=== PATIENT | female | born 1990 | race African-American/Black ===

== ENCOUNTER 2025-04-03 23:28 | Emergency (ER) | payer OTHER, SELFPAY ==
--- NOTE | ~2025-04-03 | XR_ITS ---
CLINICAL HISTORY: SOB 1 view chest x-ray Comparison: None provided Findings: The lungs are clear. Heart size is normal. No acute fracture. IMPRESSION: 1. No acute findings. This document has been electronically signed by: Suhail Nash MD on 04/04/2025 00:25:42
[2025-04-03 23:31] VITALS: BP 162/87; PULSE 123; RESP 24; TEMP 36.7; O2SAT 97; BMI 35.6
--- NOTE | 2025-04-03 23:37 | ECG_ITS ---
Test Reason : DYSPNEA Blood Pressure : */* mmHG Vent. Rate : 85 BPM Atrial Rate : 85 BPM P-R Int : 156 ms QRS Dur : 100 ms QT Int : 362 ms P-R-T Axes : -8 -29 -6 degrees QTcB Int : 430 ms Normal sinus rhythm Low voltage QRS Cannot rule out Inferior infarct , age undetermined Abnormal ECG No previous ECGs available Referred By: Generic ED Physician Electronically Signed By: ROSIE GUERRERO
[2025-04-04 00:24] VITALS: BP 137/88; PULSE 83; RESP 20; TEMP 37.1; O2SAT 95
--- NOTE | 2025-04-04 00:38 | ED.GENADULT ---
[facility] - General Adult General Chief complaint: Dyspnea Stated complaint: allergic reaction/feel likes something in throat Time Seen by Provider: 04/04/25 00:26 Source: patient Mode of arrival: ambulatory Limitations: no limitations History of Present Illness ED Provider: Dr. Up [facility] narrative: 34-year-old female presented hospital today for shortness of breath. Patient stated that she was exposed to dust. This has been going on for a couple of days she has has progressively increased shortness of breath and wheezing. Related Data Previous Rx's ?Medication ?Instructions ?Recorded albuterol sulfate 90 mcg/actuation 2 puff inhalation Q6H PRN 04/04/25 aerosol inhaler (Ventolin HFA) shortness of breath or wheezing #6.7 grams prednisone 50 mg tablet 50 mg PO DAILY 7 days #7 tabs 04/04/25 Allergies Allergy/AdvReac Type Severity Reaction Status Date / Time No Known Allergies Allergy Verified 04/03/25 23:36 Review of Systems Review of Systems: Pertinent review of systems as mentioned in HPI. All other system otherwise negative. [facility] Past Medical History [facility] Narrative: None Social History Social History Alcohol intake: never Smoked in Last 30 Days: No Use of substances other than those prescribed or required for medical reasons: No Advance Directives: No Advance Directives Information Provided: Yes Do you have a plan to hurt others: No Plan Patient : No Physical Exam ED Exam Exam: General: Pleasant, no distress, interacting appropriately Head: Normacephalic, atraumatic ENT: oral mucosa moist, neck supple, no tracheal deviation Cardiovascular: regular rate, regular rhythm, no murmurs, rubbing, gallops Respiratory: Bilateral wheezing on exam Skin: Warm and dry Psychiatric: Appropriate mood and thoughts Vital Signs: Vital Signs - 24 hr 04/03/25 23:31 04/04/25 00:24 04/04/25 01:02 EDT Temperature 98.0 F 98.7 F Pulse Rate 123 H 83 84 Respiratory Rate 24 H 20 16 Blood Pressure 162/87 H 137/88 Pulse Oximetry 97 95 Oxygen Delivery Method Room Air Room Air 04/04/25 01:38 EST Temperature 97.8 F Pulse Rate 91 Respiratory Rate 16 Blood Pressure 140/65 H Pulse Oximetry 96 Oxygen Delivery Method Room Air BMI result Body Mass Index 35.6 Medications Administered Discontinued Medications Generic Name Dose Route Start Last Admin Trade Name Freq PRN Reason Stop Dose Admin Albuterol Sulfate 5 mg/ 0 mg 04/04/25 00:53 04/04/25 01:01 EDT Albuterol/Ipratropium 3 ml INHALE 04/04/25 00:54 7.5 each ONCE ONE Administration Prednisone 50 mg 04/04/25 00:43 04/04/25 01:10 EDT Prednisone 10 Mg Tablet PO 04/04/25 00:44 50 mg ONCE ONE Administration Medical Decision Making Medical Decision Making [facility] Narrative: 34-year-old female presented hospital today for evaluation of shortness of breath and wheezing. I suspect patient likely has asthma exacerbation. Basic lab work obtained. Chest x-ray was obtained. Results has been largely negative. Patient is likely has an allergic reaction to possible dust other trigger exposure which has set off her asthma. Breathing treatment was given to the patient a dose of p.o. prednisone was given to the patient as well. Patient felt much improved afterward. We will plan to discharge patient with the albuterol inhaler. We will plan to start patient on a course of prednisone as well. Patient agrees and understands this plan all questions were addressed. Differential Diagnosis Differential Diagnoses: The differential diagnosis associated with the presentation includes Pneumonia, asthma, URI, allergic reaction Lab Data [facility] Lab Attestation statement: I reviewed the patient's lab results. 04/03/25 00:34 04/03/25 00:34 Labs: Lab Results 04/03/25 04/04/25 Range/Units 00:34 00:32 WBC 9.8 (4.8-10.8) X10*3/uL RBC 4.83 (4.20-5.50) X10*6/uL Hgb 13.6 (12.0-16.0) g/dl Hct 41.7 (37.0-47.0) % MCV 86.3 (80.0-98.0) fL MCH 28.2 (27.0-33.0) pg MCHC 32.6 (31.0-35.0) g/dl RDW 11.8 (11.0-16.0) % Plt Count 283 (160-400) X10*3/uL MPV 10.9 (9.4-12.3) fL Immature Gran % (Auto) 0.3 (0.0-0.4) % Neut % (Auto) 59.1 (45-73) % Lymph % (Auto) 29.1 (20-40) % [place] % (Auto) 6.9 (2-11) % Eos % (Auto) 4.3 H (0-4) % Baso % (Auto) 0.3 (0-2) % Lymph # (Auto) 2.9 (1.2-4.9) X10*3/uL [place] # (Auto) 0.7 (0.1-1.2) X10*3/uL Eos # (Auto) 0.4 (0.0-0.4) X10*3/uL Baso # (Auto) 0.0 (0.0-0.2) X10*3/uL Abs Immat Gran (auto) 0.03 (0.00-0.03) X10*3/uL Absolute Neuts (auto) 5.8 (2.0-8.3) x10*3/uL Absolute Nucleated RBC 0.000 (0.0-0.012) X10*3/uL Nucleated RBC % (auto) 0.0 (0.0-0.2) /100WBC Sodium 139 (135-145) mmol/L Potassium 3.7 (3.3-5.1) mmol/L Chloride 105 (96-108) mmol/L Carbon Dioxide 26 (22-29) mmol/L Anion Gap 12 (12-20) BUN 10 (9-16) mg/dL Creatinine 0.64 (0.5-1.4) mg/dL Estim Creat Clear Calc 112.1 Estimated GFR > 60 Random Glucose 120 H (60-115) mg/dL Calcium 9.3 (8.4-10.2) mg/dL Total Bilirubin 0.3 (0.0-1.0) mg/dL AST 23 (5-31) U/L ALT 24 (0-31) U/L Alkaline Phosphatase 82 (39-117) U/L Troponin I High Sens < 2.7 (<3.5-17.0) ng/L Total Protein 7.5 (6.5-8.0) g/dL Albumin 4.7 (3.5-5.0) g/dL COVID-19 (REAGAN) Negative (Negative) COVID-19 Clin Com See Note Influenza Type A (DEREK) Negative (Negative) Influenza Type B (DEREK) Negative (Negative) Influenza A & B Note See Note Independent Interpretation I performed an independent interpretation of an: EKG and Plain X-Ray Radiology Impression Discussion of test interpretation with radiology: I have reviewed the radiologist's reading. Discharge Plan Discharge Clinical Impression: Asthma with exacerbation Qualifiers: Asthma severity: mild Asthma persistence: unspecified Qualified Code(s): J45.901 - Unspecified asthma with (acute) exacerbation Patient Disposition: Home, Self-Care Instructions: Asthma (ED) Prescriptions: New albuterol sulfate [Ventolin HFA] 90 mcg/actuation HFA aerosol inhaler 2 puff inhalation Q6H PRN (Reason: shortness of breath or wheezing) Qty: 6.7 0RF prednisone 50 mg tablet 50 mg PO DAILY 7 Days Qty: 7 0RF Print Language: Bahamian
[2025-04-04 00:40] LABS: Hematocrit 41.7 % (37.0-47.0); Hemoglobin 13.6 g/dl (12.0-16.0); Imm Gran Abs Auto 0.03 X10*3/uL (0.00-0.03); Imm Gran Pct Auto 0.3 % (0.0-0.4); Lymphocytes Absolute Auto 2.9 X10*3/uL (1.2-4.9); MANUAL DIFF FLAG NO; Mean Corpuscular HGB Conc 32.6 g/dl (31.0-35.0); Mean Corpuscular Hemoglobin 28.2 pg (27.0-33.0); Mean Corpuscular Volume 86.3 fL (80.0-98.0); NRBC Abs Auto 0.000 X10*3/uL (0.0-0.012); NRBC Pct Auto 0.0 /100WBC (0.0-0.2); Platelet Count 283 X10*3/uL (160-400); Red Blood Count 4.83 X10*6/uL (4.20-5.50); White Blood Count 9.8 X10*3/uL (4.8-10.8)
--- OUTSIDE RECORDS SUMMARY | 2025-04-04 00:54 | XMS_ITS | Clinical Summary ---
Author Organization [facility] Address [address] [place] [phone] Phone Care Team Providers Care [employer] Name Role Phone Unavailable Primary Care Provider Unavailabl e Immunizations Immunization Administration Dates Next Due DTP 07/16/1994, 1,1989,10/31,1989 HPV, Quadrivalent 11/08/2008,06/15/2008,04/22/20 07 Hep B, ped/adol 08/27/2000,02/13/2000,01/11/2000 Hib (PRP-T) 10/31/1990 IPV 07/16/1994, 1,1989,08/31 MMR 07/16/1994,07/03/1990 Meningococcal Conj (Menactra) MCV4P 02/21/2006 Td (adult) (MBL), 2 Lf tetan us toxoid, PF, adsorbed 03/19/2001 Tdap 04/22/2007 Unknown Vaccine 07/03/1993,12/31/1990 Family History Relation Name Status Comments Brother Alive Brother: Alive and well Father Alive Father: Asthma Maternal Grandfather Materna l grandfather: Diabetes mellitus, Heart Problems Maternal Grandmother Materna l grandmother: Diabetes mellitus, Asthma, Heart Problems, Cancer -ovarian Mother Alive Mother: Migrain es Paternal Grandmother Paterna l grandmother: Myocardial infarction, Social History Tobacco Use Types Packs/Day Years Used Date Smoking Tobacco: Never Assessed Comments Unknown Sex and Gender Information Value Date Recorded Sex Assigned at Not on file Legal Sex Female 4:32 PM EDT Gender Identity Not on file Sexual Orientation Not on file Last Filed Vital Signs Vital Sign Reading Time Taken Comments Blood Pressure 108/64 08/22/2010 12:00 AM EDT Pulse - - Temperature - - Respiratory Rate - - Oxygen Saturation - - Inhaled Oxygen Concentration - - Weight 45.8 kg (101 lb) 08/22/2010 12:00 AM EDT Height 151.9 cm (4' 11.8 ) 08/22/2010 12:00 AM E DT Body Mass Index 19.86 08/22/2010 12:00 AM EDT Plan of Treatment Health Maintenance Due Date Last Done Comments Varicella Vaccines (1 of 2 - 13+ 2-dose series) 2002 DTaP,Tdap,and Td Vaccines (7 - Td or Tdap) 04/22/2017 04/22/2007, 03/19/2001, 07/16/1994, Additional history exists Influenza Vaccines (#1) 2025 COVID-19 Vaccine (2024- season) 2025 HIB Vaccines Completed 10/31/1990 IPV Vaccines Completed 07/16/1994, 12/03, 1989, Additional history exists MMR Vaccines Completed 07/16/1994, 07/03/1990 Hepatitis B Vaccines Completed 08/27/2000, 02/13/2000, 01/11/2000 Meningococcal Vaccine Completed 02/21/2006 HPV Vaccines Completed 11/08/2008, 06/03, 04/22/2007 Hepatitis A Vaccines Aged Out No long er eligible based on patient's age to complete this topic Men B Vaccine Aged Out No longer elig ible based on patient's age to complete this topic Pneumococcal Vaccine Aged Out No long er eligible based on patient's age to complete this topic
--- OUTSIDE RECORDS SUMMARY | 2025-04-04 00:54 | XMS_ITS | Encounter Summary ---
Author Organization [facility] Address [address] [place] [address] Phone Care Team Providers Care Video T[employer]ator Name Role Phone Unavailable Primary Care Provider Unavailabl e Encounter Details Date Type Department Care Team (Late st Contact Info) Description 01/17/2017 Conversion Encounter [facility] - [address] [id number] Social History Tobacco Use Types Packs/Day Years Used Date Smoking Tobacco: Never Assessed Comments Unknown Sex and Gender Information Value Date Recorded Sex Assigned at Not on file Legal Sex Female 4:32 PM EDT Gender Identity Not on file Sexual Orientation Not on file documented as of this encounter Plan of Treatment Not on file documented as of this encounter Visit Diagnoses Not on filedocumented in this encounter
[2025-04-04 00:55] LABS: Alanine Aminotransferase 24 U/L (0-31); Albumin Level 4.7 g/dL (3.5-5.0); Alkaline Phosphatase 82 U/L (39-117); Anion Gap 12 (12-20); Aspartate Amino Transferase 23 U/L (5-31); Blood Urea Nitrogen 10 mg/dL (9-16); Calcium 9.3 mg/dL (8.4-10.2); Carbon Dioxide 26 mmol/L (22-29); Chloride 105 mmol/L (96-108); Creatinine Clr Calc Pharmacy 112.1; Estimated Glomerular Filt Rate > 60; Potassium 3.7 mmol/L (3.3-5.1); Sodium 139 mmol/L (135-145); Total Protein 7.5 g/dL (6.5-8.0)
[2025-04-04] MEDS: Albuterol Sulfate 5 MG, Albuterol/Iprat 2.5/0.5MG 3 ML 3 ML INHALE (01:01)
[2025-04-04 01:02] VITALS: PULSE 84; RESP 16; O2SAT 99
[2025-04-04 01:03] LABS: Troponin-I High Sensitivity < 2.7 ng/L (<3.5-17.0)
[2025-04-04 01:19] LABS: COVID-19 Test Negative (Negative); IDNOW Serial# 152EDE1D; IDNOW Serial# 16C4AD1C; Influenza B2 Negative (Negative)
[2025-04-04 01:38] VITALS: BP 140/65; PULSE 91; RESP 16; TEMP 36.6; O2SAT 96
[2025-04-04 02:16] VITALS: BP 140/65; PULSE 91; RESP 16; TEMP 36.6; O2SAT 96
== END 2025-04-04 02:18 | disposition home or self-care (01) ==
PROVIDERS: Emergency Provider Student in an Organized Health Care Education/Training Program
DX: J45.901 Unspecified asthma with (acute) exacerbation (principal); R06.02 Shortness of breath; R00.0 Tachycardia, unspecified; Z11.52 Encounter for screening for COVID-19; Z79.899 Other long term (current) drug therapy
CPT/HCPCS: 71045; 80053; 84484; 85025; 87502; 87635; 93005; 94640; 99284; 99285

== ENCOUNTER → 2025-04-03 23:37 | Outpatient (BNV) | payer OTHER, SELFPAY | PROVIDERS: Emergency Provider Student in an Organized Health Care Education/Training Program; Visit Provider Internal Medicine | DX: R94.31 Abnormal electrocardiogram [ECG] [EKG] (principal); R06.00 Dyspnea, unspecified | CPT/HCPCS: 93010 ==

== ENCOUNTER → 2025-04-03 23:50 | Outpatient (BNV) | payer OTHER, SELFPAY | PROVIDERS: Emergency Provider Student in an Organized Health Care Education/Training Program; Visit Provider Radiology Diagnostic Radiology | DX: R06.02 Shortness of breath (principal) | CPT/HCPCS: 71045 ==